=== PATIENT | female | born 1960 | race African-American/Black ===

== ENCOUNTER 2021-05-21 16:39 | Emergency (ER) | payer OTHER ==
[~2021-05-21 16:39] MED LIST: BENADRYL25 M1 PO; BUSPIRONE HCL10 MG PO; CHLORTHALIDONE25 MG PO; CIMETIDINE300 MG PO; CYCLOBENZAPRINE10 MG PO; CYMBALTA60 MG PO; DULOXETINE HCL30 MG PO; GABAPENTIN100 MG PO; LISINOPRIL-HCT1 EAC1 PO; LISINOPRIL-HCT1 EAC2 PO; MELOXICAM15 MG PO; MOBIC7.5 MG PO; NEURONTIN300 MG PO; NORCO 5-325 TA1 EACH PO; PREDNISONE 20MG20 MG PO; PROTONIX 40MG T40 MG PO; ROBAXIN750 MG PO; TIZANIDINE HCL4 MG PO; ZANTAC150 MG PO; ZYRTEC10 M3 PO
[2021-05-21] MEDS ORDERED: MEDROL 4MG DOSEP4 MG PO (18:08)
[2021-05-21] MEDS ORDERED: CYCLOBENZAPRINE10 MG PO (18:08)
[2021-06-13] MEDS ORDERED: DICLOFENAC SODI50 MG PO (13:49)
[2021-07-13] MEDS ORDERED: DICLOFENAC SODI50 MG PO (17:43)
== END 2021-05-21 18:28 | disposition home or self-care (01) ==
LOC: FER 16:39
DX: M54.41 Lumbago with sciatica, right side (principal); I10 Essential (primary) hypertension
CPT/HCPCS: 96372; 99283; J1100; J1885

== ENCOUNTER 2021-05-26 08:20 | Emergency (ER) | payer OTHER ==
[~2021-05-26 08:20] MED LIST changes: +MEDROL 4MG DOSEP4 MG PO
[2021-05-26] MEDS ORDERED: NORCO 5-325 TA1 EACH PO (09:17)
[2021-06-13] MEDS ORDERED: DICLOFENAC SODI50 MG PO (13:49)
[2021-07-13] MEDS ORDERED: DICLOFENAC SODI50 MG PO (17:43)
== END 2021-05-26 09:33 | disposition home or self-care (01) ==
LOC: FER 08:20
DX: M51.16 Intervertebral disc disorders with radiculopathy, lumbar region (principal); I10 Essential (primary) hypertension; F17.200 Nicotine dependence, unspecified, uncomplicated; Z88.5 Allergy status to narcotic agent
CPT/HCPCS: J1170

== ENCOUNTER → 2021-11-16 | Day surgery (SDC) | payer OTHER ==
[~2021-11-16] VITALS: Ht 167.6 cm; Wt 99.8 kg
[~2021-11-16] MED LIST changes: +CATAFLAM50 MG PO; +DICLOFENAC SODI50 MG PO; +ULTRAM50 MG PO
[2021-11-16 09:36] LABS: BUN/CREAT RATIO (CALC) 13.9 RATIO; CREATININE 0.79 mg/dL (0.51-0.95); POTASSIUM 2.9 mmol/L (3.5-5.1)
== END | disposition home or self-care (01) ==
LOC: FAS 11-13 12:00
PROVIDERS: Anesthesiology
DX: K81.2 Acute cholecystitis with chronic cholecystitis (principal); K82.8 Other specified diseases of gallbladder; K76.0 Fatty (change of) liver, not elsewhere classified; R13.10 Dysphagia, unspecified; I10 Essential (primary) hypertension; M06.9 Rheumatoid arthritis, unspecified; F17.200 Nicotine dependence, unspecified, uncomplicated; F41.9 Anxiety disorder, unspecified; E66.9 Obesity, unspecified; Z68.36 Body mass index [BMI] 36.0-36.9, adult; Z79.1 Long term (current) use of non-steroidal anti-inflammatories (NSAID); Z79.899 Other long term (current) drug therapy; Z88.8 Allergy status to other drugs, medicaments and biological substances; Z95.4 Presence of other heart-valve replacement; Z82.49 Family history of ischemic heart disease and other diseases of the circulatory system
CPT/HCPCS: 36415; 80048; 93005; J0295; J1100; J1170; J1885; J2250; J2405; J2704; J3010; J7120